=== PATIENT | female | born 1990 | race Caucasian/White ===

== ENCOUNTER 2024-09-21 02:47 | Emergency (ER) | payer OTHER ==
[2024-09-21 02:57] VITALS: BMI 32.3
[2024-09-21] MEDS ORDERED: DIPHTH,PERTUSS(ACELL),TET 0.5 ML DISP.SYRIN IM ONE (04:01)
[2024-09-21] MEDS ORDERED: ACETAMINOPHEN 500 MG TABLET (FP) ONE ×2 (04:04→04:05)
[2024-09-21] MEDS: ACETAMINOPHEN 500 MG TABLET (FP) PO ONE (04:16)
[2024-09-21] MEDS: DIPHTH,PERTUSS(ACELL),TET 0.5 ML DISP.SYRIN IM ONE (04:16)
[2024-09-21 07:19] LABS: VENOUS BASE EXCESS -4.6 mmol/L (-2-2); VENOUS O2 SATURATION 38.5 % (70-80); VENOUS PCO2 40.1 mmHg (38-52); VENOUS PH 7.335 (7.310-7.410)
[2024-09-21 07:25] LABS: ABSOLUTE IMMATURE GRANULOCYTES 0.04 x10^3/uL (0.0-0.031); BASOPHILS # 0.03 x10^3/uL (0.01-0.08); EOSINOPHIL % 1.5 % (0.7-5.8); EOSINOPHILS # 0.17 x10^3/uL (0.04-0.36); HEMATOCRIT 40.1 % (34.1-44.9); HEMOGLOBIN 12.1 g/dL (11.2-15.7); MCHC 30.2 g/dl (32.2-35.5); MEAN CELL VOLUME 77.6 fl (79.4-94.8); MEAN PLT VOLUME 12.5 fl (9.4-12.3); MONOCYTE # 0.68 x10^3/uL (0.24-0.86); MONOCYTE % 6.1 % (4.7-12.5); PLATELET COUNT 277 x10^3/uL (182-369); RDW 13.9 % (12.1-16.8)
[2024-09-21 07:46] LABS: POTASSIUM 4.3 mmol/L (3.5-5.1)
[2024-09-21 07:48] LABS: CALCIUM 9.5 mg/dL (8.5-10.1)
[2024-09-21 07:49] LABS: ALBUMIN 4.1 g/dl (3.4-5.0); BLOOD UREA NITROGEN 13.4 mg/dL (7-18)
[2024-09-21 07:52] LABS: CREATININE 0.7 mg/dL (0.55-1.3)
[2024-09-21 07:53] LABS: BILIRUBIN,TOTAL 0.4 mg/dL (0.2-1); TOT PROT 7.5 g/dl (6.4-8.2)
[2024-09-21] MEDS: ACETAMINOPHEN 1000 MG/100 ML BAG IVPB ONE (07:53)
[2024-09-21 07:59] LABS: PH,URINE 5.5 (5.0-8.0); URINE APPEARANCE CLEAR; URINE BILIRUBIN NEGATIVE (NEGATIVE); URINE COLOR YELLOW; URINE GLUCOSE (UA) 3+ (NEGATIVE); URINE KETONE 1+ (NEGATIVE); URINE LEUK ESTERASE NEGATIVE (NEGATIVE); URINE NITRITE NEGATIVE (NEGATIVE); URINE PROTEIN NEGATIVE (NEGATIVE); URINE UROBILINOGEN 0.2 mg/dL (0.2-1.0)
[2024-09-21 08:00] LABS: INR 0.99 (0.83-1.09); PROTHROMBIN TIME (PATIENT) 10.9 SEC (9.7-13.0)
[2024-09-21 08:03] LABS: ACTIVATED PTT 29.8 SECONDS (25.2-36.5)
[2024-09-21 08:27] VITALS: BP 111/62; PULSE 74; RESP 16
[2024-09-21 08:33] VITALS: TEMP 97.8
[2024-09-21] MEDS ORDERED: IBUPROFEN 400 MG TABLET (FP) PO ONE (08:33)
[2024-09-21] MEDS: IBUPROFEN 400 MG TABLET (FP) PO ONE (08:35)
[2024-09-21 09:56] LABS: HCV DIAGNOSTIC IN-HOUSE W/RFLX NON-REACTIVE (NONREACTIVE)
[2024-09-21 09:57] LABS: HIV INTERPRETATION NEGATIVE (NEGATIVE)
== END 2024-09-21 08:53 | disposition home or self-care (01) ==
LOC: JER 02:47
PROC: 3E0234Z Introduction of Serum, Toxoid and Vaccine into Muscle, Percutaneous Approach (ICD-10-PCS; principal; 2024-09-21)
DX: S60.222A Contusion of left hand, initial encounter (principal); S00.81XA Abrasion of other part of head, initial encounter; S80.212A Abrasion, left knee, initial encounter; S90.812A Abrasion, left foot, initial encounter; M54.2 Cervicalgia; M25.512 Pain in left shoulder; E11.65 Type 2 diabetes mellitus with hyperglycemia; Z23 Encounter for immunization; V03.90XA Pedestrian on foot injured in collision with car, pick-up truck or van, unspecified whether traffic or nontraffic accident, initial encounter; Y92.410 Unspecified street and highway as the place of occurrence of the external cause
CPT/HCPCS: 36415; 70450-TC; 71046-TC-FY; 72125-TC; 72170-TC-FY; 73030-TC-LT-FY; 73060-TC-LT-FY; 73070-TC-LT-FY; 73090-TC-LT-FY; 73110-TC-LT-FY; 73130-TC-LT-FY; 73502-TC-LT-FY; 73552-TC-LT-FY; 73562-TC-LT-FY; 73590-TC-LT-FY; 73610-TC-LT-FY; 73630-TC-LT; 80053; 81003; 82010; 82550; 82803; 82962; 84484; 84703; 85025; 85610; 85730; 86803; 87086; 87389; 90715; 99285-25